=== PATIENT | female | born 1955 | race Caucasian/White ===

== ENCOUNTER → 2020-10-13 | Outpatient (CLI) | payer OTHER ==
[~2020-10-13] MED LIST: CINNAMON500 MG PO; DICLOFENAC SODI75 MG PO; GLIMEPIRIDE4 MG PO; JANUVIA100 MG PO; LOSARTAN-HCTZ1 EAC2 PO; METFORMIN HCL500 M1 PO; METOPROLOL SUC100 MG PO; MULTI VITAMIN1 EACH PO; OMEPRAZOLE40 MG PO; TURMERIC500 M2 PO; VITAMIN B-121000 MC2 SUBLING; VITAMIN D350 MC3 PO
[2020-10-13 13:21] LABS: HEMATOCRIT 38.1 % (37.0-47.0); MCHC 34.1 g/dL (28.0-37.0); MCV 88.2 fL (80.0-100.0); RBC 4.32 mil/uL (4.20-5.00); RDW 13.1 % (10.5-14.5); WBC 5.9 thou/uL (4.0-11.0)
[2020-10-13 13:25] LABS: URINE BILIRUBIN NEGATIVE (Negative); URINE BLOOD TRACE (Negative); URINE CLARITY CLEAR; URINE COLOR YELLOW; URINE GLUCOSE-RANDOM* NEGATIVE (Negative); URINE KETONES NEGATIVE (Negative); URINE NITRITE-REFLEX NEGATIVE (Negative); URINE PROTEIN (DIPSTICK) NEGATIVE (Negative); URINE SPECIFIC GRAVITY 1.015 (1.005-1.035); URINE UROBILINOGEN 0.2 E.U./dl (0.2-1.0)
[2020-10-13 13:27] LABS: URINE LEUKOCYTES-REFLEX 2+ (Negative)
[2020-10-13 13:45] LABS: ALBUMIN 3.6 g/dL (3.4-5.0); CALCIUM 8.6 mg/dL (8.5-10.1); CREATININE 1.1 mg/dL (0.6-1.0); POTASSIUM 4.1 mmol/L (3.5-5.1)
[2020-10-13 13:46] LABS: INR 0.98; PROTIME 10.7 Seconds (10.5-12.1)
[2020-10-13 13:51] LABS: CASTS None Seen /LPF (None Seen); MUCUS 0-3 Light strn/LPF (None Seen); SQUAMOUS 0-3 Few /LPF (0-3)
[2020-10-13 13:52] LABS: CRYSTALS None Seen /LPF (None Seen)
[2020-10-13 13:55] LABS: BACTERIA-REFLEX 1-9 Few /HPF (None Seen); URINE RBC 1-2 Rare /HPF (NONE SEEN); URINE WBC-REFLEX 0-5 Rare /HPF (0-5)
--- NOTE | 2020-10-13 16:06 | EKG ---
[place] [address] [facility] [place] [address] ELECTROCARDIOGRAM REPORT Name: ALISSA CARRION Room #: [facility] [place]#: [id number] Admission: 10/13/20 Attend Phys: Ghulam Fontanez MD Discharge: Date of : 51 Report #: [id number] [facility] Test Date: 2020-10-13 Test Time: 13:15:40 Pat Name: ALISSA CARRION Department: Room: Gender: F Magistrate Judge: SOHA : 1955 Requested By: Ghulam Fontanez Order Number: [id number] : Elias Mirza Measurements Intervals Bevier Rate: 70 P: 15 NV: 167 QRS: 10 QRSD: 96 T: -52 QT: 398 QTc: 430 Interpretive Statements Sinus rhythm Nonspecific T abnormalities, diffuse leads No previous ECG available for comparison Electronically Signed On 10-13-2020 16:06:22 CDT by Elias Mirza [email or web address] <ELECTRONICALLY SIGNED> By: Elias Mirza MD, [facility] 10/13/20 1606 1315 1315 Elias Mirza MD, FACC /EPI
[2020-10-13 23:06] LABS: GLYCOHEMOGLOBIN (HGB A1C) 6.6 % (4.8-5.6)
== END ==
LOC: PAC 12:29
PROVIDERS: ATTEND Orthopaedic Surgery
DX: Z01.812 Encounter for preprocedural laboratory examination (principal); Z01.810 Encounter for preprocedural cardiovascular examination; M17.0 Bilateral primary osteoarthritis of knee; Z91.048 Other nonmedicinal substance allergy status

== ENCOUNTER 2020-10-25 06:34 | Observation (INO) | payer OTHER ==
[~2020-10-25] VITALS: Ht 165.1 cm; Wt 101.9 kg
[2020-10-25 08:08] VITALS: BP 173/99
--- NOTE | 2020-10-25 16:29 | NUR ---
ASSESSMENT: CM REVIEWED CHART AND SPOKE WITH PATIENT AND HER AT THE BEDSIDE. PT IS ALERT AND ORIENTED X4. PT IS S/P R TKA. PT REPORTS LIVING IN A HOUSE WITH HER . PT REPORTS ONE STEP WHEN ENTERING THROUGH THE GARAGE AND THEN LIVES IN A SPLIT LEVEL HOME SO HAS ABOUT 7 STEPS WITH HANDRAILS ON EACH LEVEL. PT REPORTS THAT SHE IS NORMALLY FULLY INDEPENDENT WITH ADLS AND AMBULATION. PT DOES NOT HAVE ANY DME. CM DISCUSSED SHE WILL LIKELY NEED A WALKER AND PT HAS NO PREFERENCE OF COMPANY. CM NOTIFIED LIASON AT [employer] WHO REPORTS SHE VERIFIED INSURANCE AND WILL DELIVER IN THE AM. PT REPORTS HAVING OUTPATIENT THERAPY ARRANGED AT [facility] TO BEGIN ON SUNDAY. CM WILL CONTINUE TO FOLLOW TO ASSIST NEEDED AND AWAIT THERAPY EVAL.
--- NOTE | 2020-10-25 20:14 | NUR ---
PT ARRIVED FROM PACU AT 1445 THIS AFTERNOON. PT HAD RT TTL KNEE REPLACEMENT W/O COMPLICATIONS. SKIN INTACT WITH NO TENTING. INCISION SITE COVERED WITH FAISAL DRESSING, OPAL HOSE AND POLAR PACK. SCD'S IN PLACE. PT IS A/OX4, DISTAL PULSES PRESENT AND STRONG. ASSESSMENTS NOTED IN CHART AND OTHERWISE UNREMARKABLE. IV IN RT HAND WITH D5 1/2NS AT 100ML/HR. CALL LIGHT AND OTHER NEEDS ARE WITHIN REACH. FALL PRECAUTIONS ARE IN PLACE. MEDS AND TX GIVEN NEEDED AND SCHEDULED. WILL MONITOR AND NOTE ANY CHANGES.
[2020-10-25 21:02] VITALS: BP 148/88
[2020-10-26 05:16] VITALS: BP 140/76
--- NOTE | 2020-10-26 07:25 | NUR ---
ASSUMED CARE OF PT ON 10/25/20 AT 1930. IS STABLE. IS A&OX4. IS ON ROOM AIR. DENIES PAIN IN RIGHT KNEE AT THIS TIME. FAISAL DRSG, ACEWRAP, & POLAR PACK IN PLACE. PT IS UP STAND PIVOT, GB TO BSC. FALL PRECAUTIONS & HOURLY ROUNDING CONTINUED THIS SHIFT. LABS & VITALS REVIEWED. WILL CONTINUE TO MONITOR.
[2020-10-26] MEDS ORDERED: TRI-BUFFERED A325 M1 PO (07:41)
[2020-10-26] MEDS ORDERED: MS CONTIN15 MG PO (07:42)
[2020-10-26] MEDS ORDERED: HYDROCODON-ACE1 EAC7 PO (07:42)
--- NOTE | 2020-10-26 07:44 | O ---
[facility] [place] [address] OPERATIVE REPORT Name: ALISSA CARRION Room #: 448-P [facility]#: [id number] Admission: 10/25/20 Attend Phys: Ghulam Fontanez MD Discharge: Date of : 51 Report #: [id number] THIS REPORT FOR: cc: MARGARITO - Family physician unknown FAM - Family physician unknown Ghulam Fontanez MD ~ DATE OF SERVICE: 10/25/2020 PREOPERATIVE DIAGNOSIS: Right knee osteoarthritis. POSTOPERATIVE DIAGNOSIS: Right knee osteoarthritis. PROCEDURE: Right total knee arthroplasty using Navio robotic assistance. SURGEON: Ghulam Fontanez M.D. ANESTHESIA: LMA with adductor canal block. IMPLANTS: Serna and Nephew size 4 Oxinium Journey II BCS femur, size 4 tibia, size 11 constrained polyethylene and size 35 patella. TOURNIQUET TIME: 57 minutes. ESTIMATED BLOOD LOSS: 25 mL COMPLICATIONS: None. SPECIMENS: None. CONDITION UPON LEAVING THE OR: Stable. INDICATIONS FOR PROCEDURE: The patient is a 65-year-old female with severe right knee osteoarthritis. She had failed conservative measures for this and after discussion with her, she elected for right total knee arthroplasty. DESCRIPTION OF PROCEDURE: Risks, benefits, alternatives, complications were discussed in detail with the patient including, but not limited to risk of anesthesia, risk of damage to nerves, arteries, blood vessels, risk for infection, bleeding, risk for continued knee pain and need for reoperation. Informed consent was obtained from the patient. The right knee was appropriately marked in the preoperative holding area. IV Ancef was given for preoperative antibiotics. She was brought to the operating room and placed in supine position on the operating room table. LMA anesthesia was induced without complication. Tourniquet was placed on the right thigh. Right lower extremity was prepped and draped in normal sterile fashion. Timeout was performed properly identifying the patient and procedure as well as instrumentation and [facility] [address] [place] [address] OPERATIVE REPORT Name: ALISSA CARRION Room #: 448-P [facility]..#: [id number] Admission: 10/25/20 Attend Phys: Ghulam Fontanez MD Discharge: Date of : 51 Report #: [id number] implants. All in the operating room in agreement. Right lower extremity was exsanguinated, tourniquet was inflated. Tourniquet time was 57 minutes. Standard midline approach to the knee was made with 10 blade through the skin. Dissection was taken down sharply to the fascia and deep flaps were developed medially and laterally. Fresh 10 blade was used to make a medial parapatellar arthrotomy and the knee was inspected. There was severe tricompartmental osteoarthritis. ACL and PCL were removed sharply. Reference pins were placed in the femur and the tibia. The knee was then digitally mapped using the Avi[employer] robotic system. Intraoperative plan was made. We sized the size 4 femur, size 4 tibia and a 10 spacer. After acceptance of the intraoperative plan, the distal femoral cut was made with Navio bur. Distal femoral cutting block was pinned in place and chamfer cuts were made. Attention was turned to the tibia. Remainder of the menisci removed with Bovie cautery. Tibial resection guide was pinned in place using Navio for placement. Tibial resection was made. Flexion and extension gaps were then checked and found to have good balance in flexion and extension, both medially and laterally. Tibia sized, found to be a size 4. Size 4 tibial trial was placed, pinned and punched. A size 4 femoral trial was placed, box cut was made. This was then trialed with a size 10 and then a size 11 polyethylene. Size 11 polyethylene demonstrated 1-2 mm laxity medially throughout range of motion with up to 3 mm laterally. It was felt we can make up for this with a constrained implant. A 9 mm of bone was resected from the posterior surface of the patella and a size 35 patellar trial button was placed. Knee was taken through range of motion, found to be stable, found to have good patellar tracking. Trial components were removed. Bone ends were thoroughly irrigated with normal saline. Final size 4 tibia, size 4 Journey II BCS Oxinium femur and a size 35 patella were cemented in place using standard cementation techniques. While the cement cured, a periarticular injection consisting of morphine, ropivacaine, epinephrine, Toradol was placed around the knee joint capsule. After the cement cured, tourniquet was deflated. Hemostasis was obtained with Bovie cautery. Final size 11 constrained polyethylene was placed. A gram of vancomycin was placed deep in the joint. Fascia was closed with 0 Vicryl. Skin was closed with 2-0 Vicryl, skin staple and a FAISAL dressing was applied. The patient tolerated this procedure well and went to recovery room under care of anesthesia postoperatively. <ELECTRONICALLY SIGNED> By: Ghulam Fontanez MD 10/26/20 0744 [id number] Ghulam Fontanez MD /nt
[2020-10-26 08:25] VITALS: BP 140/76
[2020-10-26 08:46] VITALS: BP 175/73
--- NOTE | 2020-10-26 11:17 | NUR ---
Assumed care of pt at 0700. Pt a&ox4. Pain controlled with prn pain medications. Dressing c/d/i. Pt worked with physical therapy this am and is cleared to discharge. Call light within reach. Will continue to monitor.
--- NOTE | 2020-10-26 11:24 | NUR ---
ON-GOING ASSESSMENT: CM REVIEWED CHART. PT IS WORKING WITH THERAPY WHO FEELS PATIENT IS SAFE FOR HOME TODAY. [facility] DELIVERED WALKER TO PATIENTS ROOM. PT SHOULD HAVE NO NEEDS FROM CM PRIOR TO DISCHARGE. PLANS FOR HOME NO NEEDS TODAY.
[2020-10-26 12:02] VITALS: BP 140/76
== END 2020-10-26 13:44 | disposition home or self-care (01) ==
LOC: OR → EDSTATUS 06:34 → TBA 06:40 → 4S 11:39 → OR 14:05 → 4S 10-26 13:44
PROVIDERS: ADMIT Orthopaedic Surgery; ATTEND Orthopaedic Surgery
DX: M17.11 Unilateral primary osteoarthritis, right knee (principal); Z20.822 Contact with and (suspected) exposure to COVID-19; Z79.899 Other long term (current) drug therapy
CPT/HCPCS: 50010; 50101; 50415; 50954; 51130; 51225; 51320; 51412; 53000; 53078; 53365; 56527; 56528; 57095; 57103; 57110; 57127; 57180; 62110; 62900; 70005